=== PATIENT | female | born 1950 | race Caucasian/White ===

== ENCOUNTER → 2017-01-12 | Outpatient (REF) | payer BC ==
[2017-01-12 14:58] LABS: MEAN CORPUSCULAR HEMOGLOBIN 32.4 pg (27.0-33.0); MEAN CORPUSCULAR HGB CONC 33.2 g/dl (32.0-36.5); MEAN CORPUSCULAR VOLUME 97.6 fl (80.0-96.0); RED CELL DISTRIBUTION WIDTH 12.4 % (11.5-14.5); WHITE BLOOD COUNT 7.5 K/mm3 (4.0-10.0)
[2017-01-12 15:06] LABS: ALBUMIN 3.7 GM/DL (3.2-5.2); ALBUMIN/GLOBULIN RATIO 1.16 (1.00-1.93); ALKALINE PHOSPHATASE 76 U/L (45-117); ALT/SGPT 22 U/L (12-78); ANION GAP 5 MEQ/L (8-16); AST/SGOT 15 U/L (15-37); BILIRUBIN,TOTAL 0.2 MG/DL (0.2-1.0); BLOOD UREA NITROGEN 13 MG/DL (7-18); CALCIUM LEVEL 9.3 MG/DL (8.8-10.2); CARBON DIOXIDE LEVEL 30 MEQ/L (21-32); CHLORIDE LEVEL 104 MEQ/L (98-107); CHOLESTEROL LEVEL 207 MG/DL (<200); CREATININE FOR GFR 0.88 MG/DL (0.55-1.02); GLOMERULAR FILTRATION RATE > 60.0 (>45); GLUCOSE, FASTING 95 MG/DL (80-110); SODIUM LEVEL 139 MEQ/L (136-145); TOTAL PROTEIN 6.9 GM/DL (6.4-8.2); TRIGLYCERIDES LEVEL 87 MG/DL (<150)
[2017-01-12 15:08] LABS: POTASSIUM SERUM 5.2 MEQ/L (3.5-5.1)
== END ==
LOC: M SFHCLACO 09:04
PROVIDERS: ATTEND Physician Assistant
DX: J44.9 Chronic obstructive pulmonary disease, unspecified (principal); L40.50 Arthropathic psoriasis, unspecified; E78.2 Mixed hyperlipidemia

== ENCOUNTER → 2017-02-24 | Outpatient (REF) | payer BC | LOC: M SFHCLACO 15:05 | PROVIDERS: ATTEND Physician Assistant | DX: L82.1 Other seborrheic keratosis (principal) ==

== ENCOUNTER → 2017-08-22 | Outpatient (REF) | payer MEDICARE, BC ==
[2017-08-22 13:12] LABS: MEAN CORPUSCULAR HEMOGLOBIN 32.6 pg (27.0-33.0); MEAN CORPUSCULAR HGB CONC 33.5 g/dl (32.0-36.5); MEAN CORPUSCULAR VOLUME 97.2 fl (80.0-96.0); PLATELET COUNT, AUTOMATED 391 10^3/uL (150-450); RED CELL DISTRIBUTION WIDTH 12.9 % (11.5-14.5); WHITE BLOOD COUNT 9.8 10^3/uL (4.0-10.0)
[2017-08-22 13:23] LABS: ALBUMIN 3.7 GM/DL (3.2-5.2); ALBUMIN/GLOBULIN RATIO 1.28 (1.00-1.93); ALKALINE PHOSPHATASE 70 U/L (45-117); ALT/SGPT 18 U/L (12-78); ANION GAP 4 MEQ/L (8-16); AST/SGOT 13 U/L (7-37); BILIRUBIN,TOTAL 0.2 MG/DL (0.2-1.0); BLOOD UREA NITROGEN 18 MG/DL (7-18); CALCIUM LEVEL 9.7 MG/DL (8.8-10.2); CARBON DIOXIDE LEVEL 31 MEQ/L (21-32); CHLORIDE LEVEL 104 MEQ/L (98-107); CHOLESTEROL LEVEL 218 MG/DL (<200); CREATININE FOR GFR 0.75 MG/DL (0.55-1.02); GLOMERULAR FILTRATION RATE > 60.0 (>45); GLUCOSE, FASTING 88 MG/DL (80-110); SODIUM LEVEL 139 MEQ/L (136-145); TOTAL PROTEIN 6.6 GM/DL (6.4-8.2); TRIGLYCERIDES LEVEL 98 MG/DL (<150)
== END ==
LOC: M SFHCLACO 08:34
PROVIDERS: ATTEND Physician Assistant
DX: E78.2 Mixed hyperlipidemia (principal); J44.9 Chronic obstructive pulmonary disease, unspecified; L40.50 Arthropathic psoriasis, unspecified

== ENCOUNTER 2018-01-28 10:38 | Emergency (ER) | payer MEDICARE, BC ==
[2018-01-28] MEDS: NAPROXEN 250 MG TAB PO (11:27)
== END 2018-01-28 12:42 | disposition home or self-care (01) ==
LOC: M ED 10:38
DX: M25.461 Effusion, right knee (principal); M79.601 Pain in right arm; J44.9 Chronic obstructive pulmonary disease, unspecified; E78.00 Pure hypercholesterolemia, unspecified; M19.90 Unspecified osteoarthritis, unspecified site; F17.200 Nicotine dependence, unspecified, uncomplicated; Z79.2 Long term (current) use of antibiotics; Z79.899 Other long term (current) drug therapy; Z88.0 Allergy status to penicillin
CPT/HCPCS: 73564

== ENCOUNTER → 2018-02-07 | Outpatient (REF) | payer MEDICARE ==
[2018-02-07 15:41] LABS: APPEARANCE, BODY FLUID HAZY (CLEAR); CRYSTALS, BODY FLUID NONE SEEN (NONE SEEN); SOURCE, BODY FLUID RT KNEE; SOURCE, BODY FLUID CRYSTALS RT KNEE; SYNOVIAL FLUID COLOR PALE YELLOW (YELLOW)
[2018-02-07 15:45] LABS: BF MONONUCLEAR CELL % 9.6 % (0-0); BF POLYMORPHONUCLEAR CELL % 90.4 % (0-0); RBC BODY FLUID 2 10^3/uL (<2)
[2018-02-07 15:57] LABS: BF DIFF IF INDICATED? YES (NO); WBC BODY FLUID 13674 /uL (0-10)
[2018-02-07 15:58] LABS: SOURCE, BODY FLUID GLUCOSE RT KNEE
[2018-02-07 16:11] LABS: BODY FLUID RHEUMATOID SCREEN NEGATIVE (NEGATIVE); MUCIN CLOT TEST 4+ (4+)
== END ==
LOC: M LAB REF 13:42
DX: M25.461 Effusion, right knee (principal)
CPT/HCPCS: 82945

== ENCOUNTER → 2018-06-29 | Outpatient (REF) | payer MEDICARE ==
[2018-06-29 13:52] LABS: BASO # 0.1 10^3/uL (0.0-0.2); BASO % 0.8 % (0.0-1.0); EOS # 0.7 10^3/uL (0.0-0.50); EOS % 6.6 % (0.0-3.0); HEMATOCRIT 40.6 % (36.0-47.0); HEMOGLOBIN 13.6 g/dl (12.0-15.5); IMMATURE GRANULOCYTE % 0.2 % (0-3.0); LYMPH # 3.5 10^3/uL (1.5-4.5); LYMPH % 35.5 % (24.0-44.0); MEAN CORPUSCULAR HEMOGLOBIN 33.3 pg (27.0-33.0); MEAN CORPUSCULAR HGB CONC 33.5 g/dl (32.0-36.5); MEAN CORPUSCULAR VOLUME 99.5 fl (80.0-96.0); MONO # 0.9 10^3/uL (0.0-0.8); MONO % 8.5 % (0.0-5.0); NEUTROPHILS # 4.8 10^3/uL (1.8-7.7); NEUTROPHILS % 48.4 % (36.0-66.0); PLATELET COUNT, AUTOMATED 355 10^3/uL (150-450); RED BLOOD COUNT 4.08 10^6/uL (4.00-5.40); RED CELL DISTRIBUTION WIDTH 12.3 % (11.5-14.5)
[2018-06-29 14:31] LABS: ALBUMIN 3.8 GM/DL (3.2-5.2); ALBUMIN/GLOBULIN RATIO 1.23 (1.00-1.93); ALKALINE PHOSPHATASE 67 U/L (45-117); ALT/SGPT 20 U/L (12-78); ANION GAP 7 MEQ/L (8-16); AST/SGOT 12 U/L (7-37); BILIRUBIN,TOTAL 0.2 MG/DL (0.2-1.0); BLOOD UREA NITROGEN 20 MG/DL (7-18); C REACTIVE PROTEIN QUANTITATIV < 0.30 MG/DL (0.00-0.30); CALCIUM LEVEL 9.1 MG/DL (8.8-10.2); CARBON DIOXIDE LEVEL 28 MEQ/L (21-32); CHLORIDE LEVEL 103 MEQ/L (98-107); GLOMERULAR FILTRATION RATE > 60.0 (>45); GLUCOSE, FASTING 73 MG/DL (70-100); POTASSIUM SERUM 5.2 MEQ/L (3.5-5.1); RHEUMATOID FACTOR QUANT < 10.0 IU/ML (<15.0); SODIUM LEVEL 138 MEQ/L (136-145); TOTAL PROTEIN 6.9 GM/DL (6.4-8.2)
[2018-06-29 14:57] LABS: ERYTHROCYTE SEDIMENTATION RATE 13 mm/hr (0-30)
[2018-06-29 15:23] LABS: HEPATITIS B SURFACE ANTIBODY NEGATIVE (POSITIVE); HEPATITIS B SURFACE ANTIGEN NEGATIVE (NEGATIVE)
[2018-06-29 15:41] LABS: HEPATITIS C VIRUS ABY INDEX 0.1 INDEX (<0.8)
[2018-07-01 14:07] LABS: QUANTIFERON GOLD TB Negative (Negative); TB Test (QFT) Antigen 0.08 IU/mL (.); TB Test (QFT) Antigen Minus Ni <0.01 IU/mL (.); TB Test (QFT) Mitogen 7.75 IU/mL (.); TB Test (QFT) Nil 0.11 IU/mL (.)
== END ==
LOC: M SFHCLERA 10:47
DX: M25.561 Pain in right knee (principal); M54.5 Low back pain; G89.29 Other chronic pain; F17.210 Nicotine dependence, cigarettes, uncomplicated; Z79.899 Other long term (current) drug therapy
CPT/HCPCS: 80053

== ENCOUNTER → 2018-06-29 | Outpatient (CLI) | payer MEDICARE | LOC: M LRY 11:00 | DX: M53.3 Sacrococcygeal disorders, not elsewhere classified (principal); M51.36 Other intervertebral disc degeneration, lumbar region; M51.37 Other intervertebral disc degeneration, lumbosacral region; M25.561 Pain in right knee; M54.5 Low back pain; G89.29 Other chronic pain; F17.210 Nicotine dependence, cigarettes, uncomplicated; Z79.899 Other long term (current) drug therapy | CPT/HCPCS: 72100; 80053 ==

== ENCOUNTER → 2018-11-27 | Outpatient (CLI) | payer MEDICARE ==
[~2018-11-27] MED LIST: ALPR1TAB6 PO; ALPRTAB5 PO; AMOX500C PO; EFFE150C2 PO; ISOVUE-370 76% 100ML VIAL (Q9967) As Ordered ONE; MELO15TA28 PO; NAPR-50 PO; OXYCODONE-ACE PO; SIMV20TA2 PO; TIOT18INH INH
--- NOTE | 2018-11-27 15:03 | REP ---
CT of the chest with IV contrast: There are no comparison studies. There are no lung masses or nodules. There are linear densities in the lower lobes bilaterally, likely parenchymal scarring. Neoplasm is considered less likely. There are no acute infiltrates or pleural effusions. Suspect there are numerous small bullae throughout the lung schilling bilaterally. Probable mild bronchiectasis in the lower lobes. There is no mediastinal or hilar lymph node enlargement. There is no axillary lymph node enlargement. The thoracic aorta is unremarkable except for occasional calcified atheroma. Cardiac size is normal. The visualized upper abdominal contents are unremarkable. Impression: There are no comparisons. There are linear densities in the lower lobes, likely parenchymal scarring, neoplasm is considered less likely. No nodules or masses. No infiltrates or effusions. Small bulla throughout the lung schilling bilaterally. Probable bilateral lower lobe bronchiectasis. Electronically Signed by Byron Vora MD 11/27/2018 02:54 P
== END ==
LOC: M RAD 12:58
PROVIDERS: ATTEND Physician Assistant
DX: R04.2 Hemoptysis (principal); R51 Headache
CPT/HCPCS: 71260; Q9967

== ENCOUNTER → 2020-05-20 | Outpatient (CLI) | payer MEDICARE ==
[~2020-05-20] MED LIST changes: -ISOVUE-370 76% 100ML VIAL (Q9967) As Ordered ONE; -NAPR-50 PO; +NAPR-837 PO; -SIMV20TA2 PO; +SIMV20TA22 PO
--- NOTE | 2020-06-29 10:32 | REP ---
CHEST CT WITHOUT CONTRAST: LOW-DOSE SCREENING EXAM HISTORY: Nicotine dependence. COMPARISON: Chest CT study 11/27/2018. CT FINDINGS: Preliminary digital learning support resource room teacher radiograph demonstrates hyperinflation. There emphysematous changes in the upper lobes. There is linear fibrosis in the lingula at the left base and in the right middle lobe. Minimal linear fibrosis is seen in the left lower lobe. There are benign subpleural nodules along the minor fissure on the right unchanged from the comparison study of 11/27/2018. No significant pulmonary nodule is appreciated. Vascular calcification is observed. IMPRESSION: Lung-RADS category [address] study indicated in one year. MTDD
== END ==
LOC: M RAD 08:30
PROVIDERS: ATTEND Physician Assistant
DX: Z12.2 Encounter for screening for malignant neoplasm of respiratory organs (principal); F17.218 Nicotine dependence, cigarettes, with other nicotine-induced disorders

== ENCOUNTER → 2020-07-06 | Outpatient (REF) | payer MEDICARE | LOC: M LAB REF 17:16 | PROVIDERS: ATTEND Physician Assistant | DX: C44.319 Basal cell carcinoma of skin of other parts of face (principal); L82.0 Inflamed seborrheic keratosis ==

== ENCOUNTER → 2020-09-25 | Outpatient (REF) | payer MEDICARE | LOC: M LAB REF 09:29 | PROVIDERS: ATTEND Dermatology | DX: C44.629 Squamous cell carcinoma of skin of left upper limb, including shoulder (principal); L57.8 Other skin changes due to chronic exposure to nonionizing radiation ==

== ENCOUNTER → 2021-03-23 | Outpatient (REF) | payer MEDICARE, OTHER | LOC: M LAB REF 17:24 | PROVIDERS: ATTEND Dermatology | DX: L90.5 Scar conditions and fibrosis of skin (principal) ==

== ENCOUNTER 2021-07-17 09:01 | Inpatient (IN) | payer OTHER ==
[~2021-07-17] VITALS: Ht 157.5 cm; Wt 51.9 kg
[2021-07-17] MEDS ORDERED: CLINDAMYCIN 900 MG in IV 1 EA IV ONE (10:15)
[2021-07-17] MEDS ORDERED: KETOROLAC 30 MG/ML 1ML VIAL IV ONE (10:15)
[2021-07-17 10:23] LABS: BASO # 0.1 10^3/uL (0.0-0.2); BASO % 0.6 % (0.0-1.0); EOS # 0.7 10^3/uL (0.0-0.5); EOS % 4.8 % (0.0-3.0); HEMATOCRIT 36.8 % (36.0-47.0); HEMOGLOBIN 12.2 g/dl (12.0-15.5); LYMPH # 2.3 10^3/uL (1.5-5.0); LYMPH % 15.6 % (24.0-44.0); MEAN CORPUSCULAR HEMOGLOBIN 32.5 pg (27.0-33.0); MEAN CORPUSCULAR HGB CONC 33.2 g/dl (32.0-36.5); MEAN CORPUSCULAR VOLUME 98.1 fl (80.0-96.0); MONO % 6.7 % (2.0-8.0); NEUTROPHILS # 10.4 10^3/uL (1.5-8.5); PLATELET COUNT, AUTOMATED 470 10^3/uL (150-450); RED BLOOD COUNT 3.75 10^6/uL (4.00-5.40); WHITE BLOOD COUNT 14.5 10^3/uL (4.0-10.0)
[2021-07-17] MEDS ORDERED: ISOVUE-370 76% 100ML VIAL As Ordered ONE (10:24)
[2021-07-17 10:46] LABS: ERYTHROCYTE SEDIMENTATION RATE 60 mm/hr (0-30)
[2021-07-17 10:56] LABS: ALT/SGPT 15 U/L (12-78); BILIRUBIN,DIRECT < 0.1 MG/DL (0.0-0.2); BILIRUBIN,TOTAL 0.3 MG/DL (0.2-1.0); C REACTIVE PROTEIN QUANTITATIV 8.39 MG/DL (0.00-0.30); TOTAL PROTEIN 7.6 GM/DL (6.4-8.2)
[2021-07-17] MEDS ORDERED: NS 1,000 ML IV ONE (11:15)
--- NOTE | 2021-07-17 12:16 | REPVR ---
PROCEDURE INFORMATION: Exam: CT Maxillofacial With Contrast Exam date and time: 07/17/2021 10:40 AM Age: 70 years old Clinical indication: Mass, lump, or swelling; Other: R maxillary into mandibular; Additional info: Large swollen tender area R maxillary into mandibular TECHNIQUE: Imaging protocol: Computed tomography images of the face with intravenous contrast. Radiation optimization: All CT scans at this facility use at least one of these dose optimization techniques: automated exposure control; mA and/or kV adjustment per patient size (includes targeted exams where dose is matched to clinical indication); or iterative reconstruction. Contrast material: ISOVUE 370; Contrast volume: 75 ml; Contrast route: INTRAVENOUS (IV); COMPARISON: No relevant prior studies available. FINDINGS: Orbital cavity: Orbits are normal. Globes are unremarkable. Bones/joints: No destructive or erosive osseous changes. Paranasal sinuses: No air-fluid levels. Soft tissues: Unremarkable. Submandibular/Parotid glands: Soft tissue inflammation with cellulitis throughout the right face including skin thickening, subcutaneous fat inflammation, inflammation extending into the cementer machine joiner space and along the anterior aspect of the parotid gland and duct. No drainable fluid collection. Dental: There is a 1.4 cm intraosseous cystic area associated with the impacted right posterior mandibular molar, likely an odontogenic cyst. IMPRESSION: Right facial skin thickening with cellulitis and myositis. No drainable fluid collection. Electronically signed by: Felipe Jalloh On 07/17/2021 12:16:16 PM
[2021-07-17] MEDS ORDERED: VANCOMYCIN HCL 1,000 MG in IV FLUID PLACE HOLDER 1 EA IV ONE (12:30)
[2021-07-17] MEDS ORDERED: VANCOMYCIN HCL 1,000 MG, VIAL MATE ADAPTER 1 EACH in NS 250 ML IV ONE (13:00)
[2021-07-17] MEDS ORDERED: SODIUM CHLORIDE 0.9% 1000ML IV STA (13:02)
--- NOTE | 2021-07-17 13:10 | HPEPDOC ---
General Date of Admission 07/17/21 Date of Service: Jul 17, 2021 Chief Complaint The patient is a 70-year-old female admitted with a reason for visit of Eye Problem. Source: Patient History of Present Illness Patient is 70 years old female with past medical history of hypertension, hyperlipidemia, COPD, active smoker, psoriasis presented to hospital with facial redness and swelling. Patient stated that around 5 days ago she tried to squeeze a pimple on the right cheek and after that she developed redness and swelling which became progressively worse for the next few days. For last 2 days she has been taking Bactrim without positive dynamic. Patient stated for past 2 days she has been having fever up to 101 Fahrenheit. In ER patient was found to have leukocytosis of 14.5, lactic acidosis within normal limit. Patient was found to have tachycardia with heart rate of 105. Maxillofacial CT showed Right facial skin thickening with cellulitis and myositis. No drainable fluid collection. Dr. Nur was contacted by ER he recommended to start IV vancomycin. Home Medications Scheduled Alprazolam (Alprazolam ER) 1 Mg Tab, PO DAILY, (Reported) Amoxicillin (Amoxicillin) 500 Mg Cap, PO BID, (Reported) Meloxicam (Meloxicam) 15 Mg Tab, PO DAILY, (Reported) Naproxen (Naprosyn) 500 Mg Tab, 500 MG PO BID take with food Simvastatin (Simvastatin) 20 Mg Tab, PO DAILY, (Reported) Tiotropium Gilbert Monohydrate (Spiriva) 5 Inhalation/Inhaler Powd, 1 INHALATION INH DAILY, (Reported) [Oxycodone-Oracio] , PO DAILY, (Reported) Miscellaneous Medications Venlafaxine HCl (Effexor Xr) 150 Mg Cap, 150 MG PO, (Reported) Allergies Coded Allergies: Penicillins (Verified Allergy, Mild, ITCHING/NAUSEA, 07/17/21) Past Medical History Medical History HYPERLIPIDEMIA 2B COPD-11/2011 FEV1 1.9L (91% PREDICTED) PSORIATIC ARTHRITIS PSORIASIS ANXIETY DISORDER OSTEOPENIA B CAROTID DISEASE, R 50-69% STENOSIS, L 50% BY 08/2013 US Surgical History LUMP REMOVED FROM LEFT BREAST 2000 TUBAL LIGATION 1977 LAPAROSCOPIC SURGERY ON LEFT KNEE 2013 SKIN CANCER REMOVED FROM HEAD September Family History FATHER: 45 YRS, LIVER FAILURE MOTHER: 84 YRS, HTN, HYPERLIPIDEMIA, LYME DZ, OF BREAST CANCER NO CAD NOR CVA IN 1DR \N\NMOTHER- RHEUMATOID AND BREAST CANCERMOTHER AND BROTHER SKIN CANCER. DENIES FH OF MELANOMA. Social History * Smoker: current smoker Alcohol: occationally Drugs: marijuana A-FIB/CHADSVASC A-FIB History Current/History of A-Fib/PAF?: No Current PO Anticoag Therapy: No Review of Systems Constitutional: Reports: Fever; Denies: Chills Eyes: Denies: Pain ENT: Reports: Other Symptoms (Right facial swelling); Denies: Head Aches Skin: Denies: Jaundice, Itching Pulmonary: Denies: Dyspnea, Cough Cardiovascular: Denies: Chest Pain Gastrointestinal: Denies: Nausea Genitourinary: Denies: Dysuria Hematologic: Denies: Bruising Endocrine: Denies: Polydipsia, Polyphagia Musculoskeletal: Denies: Neck Pain Psych: Denies: Mood Normal Physical Examination General Exam: Positive: Alert, Cooperative ENT Exam: Positive: Other ENT (Right cheek swelling with redness) Neck Exam: Positive: Supple, JVD Chest Exam: Positive: Clear to auscultation Heart Exam: Positive: Tachycardic Telemetry: Positive: Sinus Abdomen Exam: Positive: Normal bowel sounds Extremity Exam: Negative: Clubbing, Cyanosis Neuro Exam: Positive: Strength at 5/5 X4 ext, Cranial Nerves 3-12 NL Psych Exam: Positive: Mental status NL Vital Signs Vital Signs Date Time Temp Pulse Resp B/P (MAP) Pulse Ox O2 Delivery O2 Flow Rate FiO2 07/17/21 09:02 98.8 102 18 130/60 (83) 97 Room Air Laboratory Data Labs 24H Laboratory Tests 2 07/17/21 10:10: Immature Granulocyte % (Auto) 0.3, Neutrophils (%) (Auto) 72.0H, Lymphocytes (%) (Auto) 15.6L, Monocytes (%) (Auto) 6.7, Eosinophils (%) (Auto) 4.8H, Basophils (%) (Auto) 0.6, Neutrophils # (Auto) 10.4H, Lymphocytes # (Auto) 2.3, Monocytes # (Auto) 1.0H, Eosinophils # (Auto) 0.7H, Basophils # (Auto) 0.1, Nucleated Red Blood Cells % (auto) 0.0, Erythrocyte Sedimentation Rate 60H, Lactic Acid Level 0.9, Total Bilirubin 0.3, Direct Bilirubin < 0.1, Aspartate Amino Transf (AST/SGOT) 18, Alanine Aminotransferase (ALT/SGPT) 15, Alkaline Phosphatase 87, C-Reactive Protein, Quantitative 8.39H, Total Protein 7.6, Albumin 3.0L, Albumin/Globulin Ratio 0.7L 07/17/21 10:11: POC Glucose (Misc Panel) 96, POC Sodium (Misc Panel) 135L, POC Potassium (Misc Panel) 4.8, POC Chloride (Misc Panel) 99, POC Total CO2 (Misc Panel) 29.0H, POC Blood Urea Nitrogen (Misc Panel 14, POC Ionized Calcium (Misc Panel) 4.9, POC Creatinine (Misc Panel) 1.0, POC Hematocrit (Misc Panel) 37.0L CBC/BMP Laboratory Tests 07/17/21 10:10 Microbiology Microbiology 07/17/21 Blood Culture, Received Pending 07/17/21 Blood Culture, Received Pending Assessment/Plan Patient is 70 years old female with past medical history of hypertension, hyperl ipidemia, COPD, active smoker, psoriasis presented to hospital with facial redness and swelling. Patient stated that around 5 days ago she tried to squeeze a pimple on the right cheek and after that she developed redness and swelling which became progressively worse for the next few days. For last 2 days she has been taking Bactrim without positive dynamic. Patient stated for past 2 days she has been having fever up to 101 Fahrenheit. In ER patient was found to have leukocytosis of 14.5, lactic acidosis within normal limit. Patient was found to have tachycardia with heart rate of 105. Maxillofacial CT showed Right facial skin thickening with cellulitis and myositis. No drainable fluid collection. Dr. Nur was contacted by ER he recommended to start IV vancomycin. Problems (1) Facial cellulitis Status: Acute Problem Text: Started vancomycin IV Blood culture pending Pain management (2) Hypertension Status: Chronic Problem Text: Continue home meds (3) COPD (chronic obstructive pulmonary disease) Status: Chronic Problem Text: Not in acute exacerbation continue home meds (4) Nicotine abuse Status: Chronic Problem Text: Patient received counseling (5) HLD (hyperlipidemia) Status: Chronic Problem Text: Continue statin (6) SIRS (systemic inflammatory response syndrome) Status: Acute Problem Text: Patient developed leukocytosis, tachycardia Started IV fluid with vancomycin IV Plan / VTE VTE Prophylaxis Ordered?: Yes GOMEZ JARAMILLO DO Jul 17, 2021 13:10
[2021-07-17] MEDS ORDERED: VENL100T PO (13:42)
[2021-07-17] MEDS ORDERED: OXYC1TAB23 PO (13:42)
[2021-07-17] MEDS ORDERED: CYCL-707 PO (13:42)
[2021-07-17] MEDS ORDERED: ALPRTAB5 PO (13:42)
[2021-07-17] MEDS ORDERED: ALPR0.5T3 PO (13:42)
[2021-07-17] MEDS ORDERED: BACTDSTA PO (13:42)
[2021-07-17] MEDS ORDERED: VENL50TA2 PO (13:42)
[2021-07-17] MEDS ORDERED: LOSA25TA14 PO (13:42)
[2021-07-17] MEDS ORDERED: SPIR12.9 INH (13:43)
[2021-07-17] MEDS ORDERED: HOME MED LIST COMPLETE! XX SCH (13:45)
[2021-07-17 16:34] LABS: RSV AMPLIFICATION NEGATIVE (NEGATIVE)
[2021-07-17 17:00] VITALS: BP 157/98
[2021-07-17] MEDS: HEPARIN SOD (PORCINE) 5000UNITS/ML 1ML VIAL/SYRINGE SC SCH (21:11)
[2021-07-17] MEDS: ACETAMINOPHEN TAB 650MG DOSE (2X325MG) PO PRN (21:12)
[2021-07-17 21:23] VITALS: BP 109/64
[2021-07-18 06:00] VITALS: BP 135/79
[2021-07-18] MEDS: ACETAMINOPHEN TAB 650MG DOSE (2X325MG) PO PRN (07:44)
[2021-07-18] MEDS: HEPARIN SOD (PORCINE) 5000UNITS/ML 1ML VIAL/SYRINGE SC SCH ×2 (07:44→20:32)
[2021-07-18] MEDS ORDERED: PERCOCET 5MG/325MG TAB PO PRN (08:35)
[2021-07-18] MEDS ORDERED: CYCLOBENZAPRINE 10MG TABLET PO PRN (08:35)
[2021-07-18] MEDS ORDERED: ALPRAZolam 0.5 MG TAB PO PRN (08:35)
[2021-07-18 09:25] LABS: HEMATOCRIT 33.5 % (36.0-47.0); HEMOGLOBIN 11.1 g/dl (12.0-15.5); MEAN CORPUSCULAR HEMOGLOBIN 32.3 pg (27.0-33.0); MEAN CORPUSCULAR HGB CONC 33.1 g/dl (32.0-36.5); MEAN CORPUSCULAR VOLUME 97.4 fl (80.0-96.0); PLATELET COUNT, AUTOMATED 483 10^3/uL (150-450); RED BLOOD COUNT 3.44 10^6/uL (4.00-5.40); WHITE BLOOD COUNT 11.3 10^3/uL (4.0-10.0)
[2021-07-18] MEDS: SIMVASTATIN 20 MG TAB PO SCH (09:48)
[2021-07-18] MEDS: LOSARTAN 25 MG TAB PO SCH (09:48)
[2021-07-18 09:49] LABS: ALBUMIN 2.6 GM/DL (3.2-5.2); ALT/SGPT 14 U/L (12-78); BILIRUBIN,TOTAL 0.2 MG/DL (0.2-1.0); BLOOD UREA NITROGEN 17 MG/DL (7-18); CALCIUM LEVEL 9.5 MG/DL (8.8-10.2); CARBON DIOXIDE LEVEL 27 MEQ/L (21-32); CHLORIDE LEVEL 106 MEQ/L (98-107); CREATININE FOR GFR 0.88 MG/DL (0.55-1.30); GLOMERULAR FILTRATION RATE > 60.0 (>45); GLUCOSE, FASTING 74 MG/DL (70-100); MAGNESIUM LEVEL 2.1 MG/DL (1.8-2.4); POTASSIUM SERUM 5.3 MEQ/L (3.5-5.1); SODIUM LEVEL 138 MEQ/L (136-145); TOTAL PROTEIN 6.2 GM/DL (6.4-8.2)
[2021-07-18] MEDS ORDERED: NICOTINE 21MG/24HR 1 EA TRANSDERMAL TD PRN (10:00)
--- NOTE | 2021-07-18 12:07 | IPNPDOC ---
Text Note Date of Service The patient was seen on 07/18/21. NOTE Subjective: No any acute events overnight. No fever or chills. Patient stated that she has less right facial swelling. Objective: GENERAL APPEARANCE: NAD HEENT: no scleral icterus, no JVD, EOMI CARDIOVASCULAR: S1S2 LUNGS: Diminished lung sounds bilaterally ABDOMEN: soft & not tender w palpation MUSCULOSKELETAL: no cyanosis, no swelling INTEGUMENT: no generalized pallor, right cheek swelling with redness NEUROLOGICAL: cranial nerve function from 2-12 intact, follows commands, speech not dysarthric Assessment/Plan Patient is 70 years old female with past medical history of hypertension, hyperlipidemia, COPD, active smoker, psoriasis presented to hospital with facial redness and swelling. Patient stated that around 5 days ago she tried to squeeze a pimple on the right cheek and after that she developed redness and swelling which became progressively worse for the next few days. For last 2 days she has been taking Bactrim without positive dynamic. Patient stated for past 2 days she has been having fever up to 101 Fahrenheit. In ER patient was found to have leukocytosis of 14.5, lactic acidosis within normal limit. Patient was found to have tachycardia with heart rate of 105. Maxillofacial CT showed Right facial skin thickening with cellulitis and myositis. No drainable fluid collection. Dr. Nur was contacted by ER he recommended to start IV vancomycin. Problems (1) Facial cellulitis Improved Continue vancomycin IV day 1 Blood culture negative Pain management (2) Hypertension Continue home meds (3) COPD (chronic obstructive pulmonary disease) Not in acute exacerbation continue home meds (4) Nicotine abuse Patient received counseling Nicotine patch (5) HLD (hyperlipidemia) Continue statin (6) SIRS (systemic inflammatory response syndrome) Patient developed leukocytosis, tachycardia Resolved Hyperkalemia Potassium slightly elevated Kayexalate p.o. Plan / VTE VTE Prophylaxis Ordered?: Yes VS,Fishbone, I+O VS, Fishbone, I+O Laboratory Tests 07/18/21 08:33 Vital Signs Date Time Temp Pulse Resp B/P (MAP) Pulse Ox O2 Delivery O2 Flow Rate FiO2 07/18/21 09:48 119/85 07/18/21 06:00 99.3 90 18 96 Room Air I&O- Last 24 Hours up to 6 AM 07/18/21 06:00 Intake Total 3480 ml Balance 3480 ml GOMEZ JARAMILLO DO Jul 18, 2021 12:07
[2021-07-18] MEDS: VENLAFAXINE 25 MG TAB PO SCH ×2 (12:41)
[2021-07-18] MEDS ORDERED: SOD POLYSTYRENE SULFONATE SUSP 15 GM/60 ML UD PO ONE (13:00)
[2021-07-18 14:00] VITALS: BP 150/86
[2021-07-18] MEDS ORDERED: VANCOMYCIN HCL 1,000 MG, VIAL MATE ADAPTER 1 EACH in NS 250 ML IV SCH (14:00)
[2021-07-18] MEDS: PERCOCET 5MG/325MG TAB PO PRN ×2 (16:43→23:14)
[2021-07-18 21:52] VITALS: BP 153/82
[2021-07-19] MEDS: PERCOCET 5MG/325MG TAB PO PRN (05:55)
[2021-07-19 06:00] VITALS: BP 155/86
[2021-07-19 08:59] LABS: BASO # 0.1 10^3/uL (0.0-0.2); BASO % 1.1 % (0.0-1.0); EOS # 0.9 10^3/uL (0.0-0.5); EOS % 8.7 % (0.0-3.0); HEMATOCRIT 36.5 % (36.0-47.0); HEMOGLOBIN 12.1 g/dl (12.0-15.5); LYMPH # 1.8 10^3/uL (1.5-5.0); LYMPH % 18.7 % (24.0-44.0); MEAN CORPUSCULAR HGB CONC 33.2 g/dl (32.0-36.5); MEAN CORPUSCULAR VOLUME 96.6 fl (80.0-96.0); MONO # 0.6 10^3/uL (0.0-0.8); MONO % 6.4 % (2.0-8.0); NEUTROPHILS # 6.4 10^3/uL (1.5-8.5); NEUTROPHILS % 64.6 % (36.0-66.0); PLATELET COUNT, AUTOMATED 520 10^3/uL (150-450); RED BLOOD COUNT 3.78 10^6/uL (4.00-5.40); WHITE BLOOD COUNT 9.9 10^3/uL (4.0-10.0)
[2021-07-19] MEDS: VENLAFAXINE 25 MG TAB PO SCH ×2 (09:00)
[2021-07-19] MEDS: SIMVASTATIN 20 MG TAB PO SCH (09:01)
[2021-07-19] MEDS: HEPARIN SOD (PORCINE) 5000UNITS/ML 1ML VIAL/SYRINGE SC SCH (09:01)
[2021-07-19] MEDS: LOSARTAN 25 MG TAB PO SCH (09:17)
[2021-07-19 09:23] LABS: BLOOD UREA NITROGEN 12 MG/DL (7-18); CALCIUM LEVEL 9.4 MG/DL (8.8-10.2); CARBON DIOXIDE LEVEL 28 MEQ/L (21-32); CHLORIDE LEVEL 104 MEQ/L (98-107); CREATININE FOR GFR 0.86 MG/DL (0.55-1.30); GLOMERULAR FILTRATION RATE > 60.0 (>45); GLUCOSE, FASTING 98 MG/DL (70-100); POTASSIUM SERUM 4.3 MEQ/L (3.5-5.1); SODIUM LEVEL 138 MEQ/L (136-145)
[2021-07-19] MEDS ORDERED: DOXY-350 PO (10:34)
[2021-07-19] MEDS ORDERED: LOSA50TA88 PO (10:37)
[2021-07-19 10:50] VITALS: BP 173/101
[2021-07-19] MEDS ORDERED: LOSARTAN 25 MG TAB PO ONE (11:00)
--- NOTE | 2021-07-19 12:39 | DS.PDOC ---
Discharge Summary General Date of Admission Jul 17, 2021 at 13:02 Date of Discharge 07/18/21 Discharge Summary PROCEDURES PERFORMED DURING STAY: [None]. ADMITTING DIAGNOSES: Facial cellulitis Hypertension COPD (chronic obstructive pulmonary disease) Nicotine abuse HLD (hyperlipidemia) SIRS (systemic inflammatory response syndrome) Hyperkalemia DISCHARGE DIAGNOSES: Facial cellulitis Hypertension COPD (chronic obstructive pulmonary disease) Nicotine abuse HLD (hyperlipidemia) SIRS (systemic inflammatory response syndrome) Hyperkalemia COMPLICATIONS/CHIEF COMPLAINT: Facial Cellulitits. HISTORY OF PRESENT ILLNESS: Patient is 70 years old female with past medical history of hypertension, hyperlipidemia, COPD, active smoker, psoriasis prese nted to hospital with facial redness and swelling. Patient stated that around 5 days ago she tried to squeeze a pimple on the right cheek and after that she developed redness and swelling which became progressively worse for the next few days. For last 2 days she has been taking Bactrim without positive dynamic. Patient stated for past 2 days she has been having fever up to 101 Fahrenheit. In ER patient was found to have leukocytosis of 14.5, lactic acidosis within normal limit. Patient was found to have tachycardia with heart rate of 105. Maxillofacial CT showed Right facial skin thickening with cellulitis and myositis. No drainable fluid collection. Dr. Nur was contacted by ER he recommended to start IV vancomycin. HOSPITAL COURSE: During the hospital stay the following issue addressed Patient was found to have facial swelling started after, patient received treat ment with vancomycin IV with positive effect. Surgical team evaluated, they recommended to continue treatment with antibiotic therapy and her warm compress. Patient developed elevated blood pressure today in the morning, I increase the dose of losartan to 50 mg daily DISCHARGE MEDICATIONS: Please see below. ALLERGIES: Please see below. PHYSICAL EXAMINATION ON DISCHARGE: VITAL SIGNS: Please see below. GENERAL APPEARANCE: NAD HEENT: no scleral icterus, no JVD, EOMI CARDIOVASCULAR: S1S2 LUNGS: Diminished lung sounds bilaterally ABDOMEN: soft & not tender w palpation MUSCULOSKELETAL: no cyanosis, no swelling INTEGUMENT: no generalized pallor, mild right cheek swelling with redness NEUROLOGICAL: cranial nerve function from 2-12 intact, follows commands, speech not dysarthric LABORATORY DATA: Please see below. IMAGING: See above PROGNOSIS: Fair ACTIVITY: [As tolerated]. DIET:cardiac DISCHARGE PLAN: Home DISCHARGE INSTRUCTIONS: Continue taking antibiotics ITEMS TO FOLLOWUP ON ON OUTPATIENT: Follow-up with PCP DISCHARGE CONDITION: [Stable]. TIME SPENT ON DISCHARGE: 20 minutes. Vital Signs/I&Os Vital Signs Date Time Temp Pulse Resp B/P (MAP) Pulse Ox O2 Delivery O2 Flow Rate FiO2 07/19/21 10:50 100 173/101 07/19/21 06:25 16 07/19/21 06:00 98.5 97 Room Air I&O- Last 24 Hours up to 6 AM 07/19/21 06:00 Intake Total 720 ml Balance 720 ml Laboratory Data Labs 24H Laboratory Tests 2 07/19/21 08:42: Immature Granulocyte % (Auto) 0.5, Neutrophils (%) (Auto) 64.6, Lymphocytes (%) (Auto) 18.7L, Monocytes (%) (Auto) 6.4, Eosinophils (%) (Auto) 8.7H, Basophils (%) (Auto) 1.1H, Neutrophils # (Auto) 6.4, Lymphocytes # (Auto) 1.8, Monocytes # (Auto) 0.6, Eosinophils # (Auto) 0.9H, Basophils # (Auto) 0.1, Nucleated Red Blood Cells % (auto) 0.0, Anion Gap 6L, Glomerular Filtration Rate > 60.0, Calcium Level 9.4 CBC/BMP Laboratory Tests 07/19/21 08:42 Microbiology Microbiology 07/17/21 Blood Culture - Preliminary, Resulted No Growth after 48 hours. All Specime... 07/17/21 Blood Culture - Preliminary, Resulted No Growth after 48 hours. All Specime... Discharge Medications Scheduled Alprazolam (Alprazolam Xr) 1 Mg Tab.er.24h, 1 MG PO DAILY, (Reported) Doxycycline Monohydrate (Doxycycline) 100 Mg Capsule, 1 CAP PO BID Losartan Potassium (Losartan Potassium) 50 Mg Tablet, 1 TAB PO DAILY Simvastatin (Simvastatin) 20 Mg Tab, 20 MG PO DAILY, (Reported) Tiotropium [place] (Spiriva Respimat) 4 Gm Mist.inhal, 1 PUFF INH DAILY, (Reported) Venlafaxine HCl (Venlafaxine HCl) 50 Mg Tablet, 50 MG PO DAILY, (Reported) WITH 100MG TAB, TOTAL OF 150MG Venlafaxine HCl (Venlafaxine HCl) 100 Mg Tablet, 100 MG PO DAILY, (Reported) WITH 50MG TAB, TOTAL OF 150MG Scheduled PRN Alprazolam (Alprazolam) 0.5 Mg Tablet, 0.5 MG PO DAILY PRN for SEVERE ANXI ETY/AGITATION, (Reported) Cyclobenzaprine HCl (Cyclobenzaprine HCl) 10 Mg Tablet, 10 MG PO TID PRN for MUSCLE SPASMS, (Reported) Oxycodone HCl/Acetaminophen (Oxycodone-Acetaminophen 5-325) 1 Each Tablet, 2 TAB PO TID PRN for PAIN LEVEL 4-7, (Reported) Allergies Coded Allergies: Penicillins (Verified Allergy, Mild, ITCHING/NAUSEA, 07/17/21) GOMEZ JARAMILLO DO Jul 19, 2021 12:39
[2021-07-19 12:56] VITALS: BP 148/90
== END 2021-07-19 13:35 | disposition home or self-care (01) | DRG 383 ==
LOC: M ED 09:01 → M ED INP 13:02 → ENRESERV 15:52 → M MS5PR 17:03
PROVIDERS: ADMIT Internal Medicine; ATTEND Internal Medicine
DX: L03.211 Cellulitis of face (principal); J44.9 Chronic obstructive pulmonary disease, unspecified; E87.5 Hyperkalemia; I10 Essential (primary) hypertension; F17.200 Nicotine dependence, unspecified, uncomplicated; E78.5 Hyperlipidemia, unspecified; L40.8 Other psoriasis; M60.88 Other myositis, other site; Z79.899 Other long term (current) drug therapy; Z88.0 Allergy status to penicillin; F41.9 Anxiety disorder, unspecified

== ENCOUNTER → 2021-07-26 | Outpatient (REF) | payer OTHER, MEDICARE ==
[~2021-07-26] MED LIST changes: +ALPR0.5T3 PO; +BACTDSTA PO; +CYCL-707 PO; +DOXY-350 PO; +LOSA25TA14 PO; +LOSA50TA88 PO; +OXYC1TAB23 PO; +SPIR12.9 INH; +VENL100T PO; +VENL50TA2 PO
== END ==
LOC: M SFHCADAM 10:42
PROVIDERS: ATTEND Physician Assistant
DX: Z20.822 Contact with and (suspected) exposure to COVID-19 (principal)
CPT/HCPCS: 87426; 99495; U0003

== ENCOUNTER → 2021-08-03 | Outpatient (CLI) | payer OTHER ==
--- NOTE | 2021-08-03 12:55 | REP ---
INDICATION: NICTOINE DEPNED. COMPARISON: Multiple the latest 05/20/2020 also low-dose screening CT of the lungs TECHNIQUE: Axial noncontrast images from the thoracic inlet to the upper abdomen using low-dose lung screening technique (LDCT). As per the protocol only lung window images were sent to the read station for interpretation FINDINGS: There is biapical pleuroparenchymal scarring status quo. There is lung field hyperexpansion and emphysematous change status quo. No new abnormal nodules, masses, or opacities have developed. Grossly, the mediastinum and pulmonary talib are unchanged. Grossly, the imaged upper abdomen and imaged osseous structures are unchanged. IMPRESSION: Stable lung rads category [address] low-dose screening CT examination of the lungs. Follow-up as per the revised Fleischner society criteria. <Electronically signed by John Ramírez > 08/03/21 [id number]
== END ==
LOC: M RAD 09:22
PROVIDERS: ATTEND Physician Assistant
DX: Z12.2 Encounter for screening for malignant neoplasm of respiratory organs (principal); F17.218 Nicotine dependence, cigarettes, with other nicotine-induced disorders

== ENCOUNTER → 2021-08-10 | Outpatient (REF) | payer MEDICARE, OTHER | LOC: M LAB REF 13:54 | PROVIDERS: ATTEND Physician Assistant | DX: C44.729 Squamous cell carcinoma of skin of left lower limb, including hip (principal); L57.0 Actinic keratosis ==

== ENCOUNTER → 2021-10-11 | Outpatient (REF) | payer OTHER ==
[2021-10-11 13:41] LABS: ALBUMIN 3.4 GM/DL (3.2-5.2); ALT/SGPT 15 U/L (12-78); BILIRUBIN,TOTAL 0.3 MG/DL (0.2-1.0); BLOOD UREA NITROGEN 15 MG/DL (7-18); CALCIUM LEVEL 9.7 MG/DL (8.8-10.2); CARBON DIOXIDE LEVEL 29 MEQ/L (21-32); CHLORIDE LEVEL 103 MEQ/L (98-107); CHOLESTEROL LEVEL 190 MG/DL (<200); CREATININE FOR GFR 0.82 MG/DL (0.55-1.30); GLOMERULAR FILTRATION RATE > 60.0 (>45); GLUCOSE, FASTING 93 MG/DL (70-100); HDL CHOLESTEROL 50 MG/DL (>40); LDL CHOLESTEROL 121 MG/DL (<100); NON-HDL-C 140 MG/DL; POTASSIUM SERUM 4.8 MEQ/L (3.5-5.1); SODIUM LEVEL 137 MEQ/L (136-145); TOTAL PROTEIN 7.1 GM/DL (6.4-8.2); TRIGLYCERIDES LEVEL 97 MG/DL (<150)
== END ==
LOC: M SFHCADAM 10:37
PROVIDERS: ATTEND Physician Assistant
DX: R05.9 Cough, unspecified (principal); R63.4 Abnormal weight loss; E78.2 Mixed hyperlipidemia

== ENCOUNTER → 2022-03-24 | Outpatient (CLI) | payer OTHER ==
[~2022-03-24] MED LIST changes: +LOSA25TA13 PO; -LOSA25TA14 PO; +LOSA50TA28 PO; -LOSA50TA88 PO
== END ==
LOC: M ADAMS 09:39
PROVIDERS: ATTEND Physician Assistant
DX: M51.37 Other intervertebral disc degeneration, lumbosacral region (principal); M41.9 Scoliosis, unspecified; R91.8 Other nonspecific abnormal finding of lung field

== ENCOUNTER → 2022-04-05 | Outpatient (REF) | payer OTHER | LOC: M SFHCDERM 14:46 | PROVIDERS: ATTEND Dermatology | DX: C44.722 Squamous cell carcinoma of skin of right lower limb, including hip (principal); L57.0 Actinic keratosis ==

== ENCOUNTER → 2022-04-19 | Outpatient (REF) | payer OTHER | LOC: M SFHCDERM 16:48 | PROVIDERS: ATTEND Dermatology | DX: T81.49XA Infection following a procedure, other surgical site, initial encounter (principal) ==

== ENCOUNTER → 2022-06-23 | Outpatient (REF) | payer OTHER | LOC: M SFHCPLAZ 12:59 | PROVIDERS: ATTEND Family Medicine | DX: F11.90 Opioid use, unspecified, uncomplicated (principal) ==

== ENCOUNTER → 2022-08-08 | Outpatient (CLI) | payer MEDICARE ==
[~2022-08-08] MED LIST changes: -DOXY-350 PO; +DOXY-444 PO
== END ==
LOC: M WHC 10:21
PROVIDERS: ATTEND Physician Assistant
DX: I65.23 Occlusion and stenosis of bilateral carotid arteries (principal)

== ENCOUNTER → 2022-08-16 | Outpatient (CLI) | payer MEDICARE | LOC: M RAD 09:08 | PROVIDERS: ATTEND Physician Assistant | DX: F17.210 Nicotine dependence, cigarettes, uncomplicated (principal) ==

== ENCOUNTER → 2022-09-29 | Outpatient (REF) | payer MEDICARE ==
[2022-09-29 17:54] LABS: BASO # 0.1 10^3/uL (0.0-0.2); BASO % 0.9 % (0.0-1.0); EOS # 0.8 10^3/uL (0.0-0.5); EOS % 6.4 % (0.0-3.0); HEMATOCRIT 40.1 % (36.0-47.0); HEMOGLOBIN 12.9 g/dl (12.0-15.5); LYMPH # 3.4 10^3/uL (1.5-5.0); LYMPH % 26.9 % (24.0-44.0); MEAN CORPUSCULAR HEMOGLOBIN 32.1 pg (27.0-33.0); MEAN CORPUSCULAR HGB CONC 32.2 g/dl (32.0-36.5); MEAN CORPUSCULAR VOLUME 99.8 fl (80.0-96.0); MONO % 7.9 % (2.0-8.0); NEUTROPHILS # 7.4 10^3/uL (1.5-8.5); NEUTROPHILS % 57.6 % (36.0-66.0); PLATELET COUNT, AUTOMATED 495 10^3/uL (150-450); RED BLOOD COUNT 4.02 10^6/uL (4.00-5.40); WHITE BLOOD COUNT 12.8 10^3/uL (4.0-10.0)
[2022-09-29 18:01] LABS: ALBUMIN 3.9 G/DL (3.2-5.2); ALKALINE PHOSPHATASE 83 U/L (46-116); ALT/SGPT 19 U/L (7.0-40); AST/SGOT 22 U/L (<34); BILIRUBIN,TOTAL 0.2 MG/DL (0.3-1.2); BLOOD UREA NITROGEN 18 MG/DL (9-23); CALCIUM LEVEL 10.4 MG/DL (8.3-10.6); CARBON DIOXIDE LEVEL 25 MMOL/L (20-31); CHLORIDE LEVEL 103 MMOL/L (98-107); CHOLESTEROL LEVEL 182 MG/DL (<200); CHOLESTEROL RISK RATIO 2.44 (<5); CREATININE FOR GFR 0.88 MG/DL (0.55-1.30); FREE T4 1.06 NG/DL (0.89-1.76); GLOMERULAR FILTRATION RATE > 60.0 (>39); GLUCOSE, FASTING 76 MG/DL (74-106); HDL CHOLESTEROL 74.4 MG/DL (>40); LDL CHOLESTEROL 88.6 MG/DL (<100); NON-HDL-C 108 MG/DL; POTASSIUM SERUM 5.1 MMOL/L (3.5-5.1); SODIUM LEVEL 138 MMOL/L (136-145); TOTAL PROTEIN 7.1 G/DL (5.7-8.2); TRIGLYCERIDES LEVEL 95 MG/DL (<150); VITAMIN B12 LEVEL 301 PG/ML (211-911)
[2022-09-29 18:02] LABS: THYROID STIMULATING HORMONE 0.337 uIU/ML (0.55-4.78)
[2022-09-29 18:03] LABS: TOTAL 25(OH) VITAMIN D 112.5 NG/ML (20.0-100.0)
[2022-09-29 18:05] LABS: FOLATE 10.6 NG/ML (>5.4)
== END ==
LOC: M SFHCADAM 14:17
PROVIDERS: ATTEND Physician Assistant
DX: I10 Essential (primary) hypertension (principal); Z12.11 Encounter for screening for malignant neoplasm of colon; E78.2 Mixed hyperlipidemia; J44.9 Chronic obstructive pulmonary disease, unspecified; M81.0 Age-related osteoporosis without current pathological fracture; M54.42 Lumbago with sciatica, left side

== ENCOUNTER → 2023-04-06 | Outpatient (REF) | payer MEDICARE | LOC: M SFHCADAM 13:30 | PROVIDERS: ATTEND Physician Assistant | DX: I10 Essential (primary) hypertension (principal); E78.2 Mixed hyperlipidemia; I65.23 Occlusion and stenosis of bilateral carotid arteries; J44.9 Chronic obstructive pulmonary disease, unspecified; M51.06 Intervertebral disc disorders with myelopathy, lumbar region ==

== ENCOUNTER → 2023-10-10 | Outpatient (REF) | payer MEDICARE ==
[~2023-10-10] MED LIST changes: -EFFE150C2 PO; +EFFE150C3 PO
== END ==
LOC: M SFHCADAM 12:54
PROVIDERS: ATTEND Physician Assistant
DX: E78.2 Mixed hyperlipidemia (principal); I65.23 Occlusion and stenosis of bilateral carotid arteries; J44.9 Chronic obstructive pulmonary disease, unspecified; M51.06 Intervertebral disc disorders with myelopathy, lumbar region; I10 Essential (primary) hypertension; L40.50 Arthropathic psoriasis, unspecified

== ENCOUNTER → 2023-11-27 | Outpatient (REF) | payer MEDICARE | LOC: M SFHCADAM 10:02 | PROVIDERS: ATTEND Physician Assistant | DX: L40.50 Arthropathic psoriasis, unspecified (principal) ==

== ENCOUNTER → 2023-12-19 | Outpatient (CLI) | payer MEDICARE | LOC: M RAD 13:35 | PROVIDERS: ATTEND Physician Assistant | DX: R91.8 Other nonspecific abnormal finding of lung field (principal) ==

== ENCOUNTER → 2024-01-11 | Outpatient (REF) | payer MEDICARE | LOC: M SFHCADAM 12:09 | PROVIDERS: ATTEND Family Medicine | DX: Z79.899 Other long term (current) drug therapy (principal) ==

== ENCOUNTER → 2025-01-23 | Outpatient (REF) | payer OTHER ==
[~2025-01-23] MED LIST changes: +DOXY-440 PO; -DOXY-444 PO
[2025-01-23 14:24] LABS: HEMATOCRIT 34.9 % (36.0-47.0); HEMOGLOBIN 11.3 g/dl (12.0-15.5); MEAN CORPUSCULAR HEMOGLOBIN 32.6 pg (27.0-33.0); MEAN CORPUSCULAR HGB CONC 32.4 g/dl (32.0-36.5); MEAN CORPUSCULAR VOLUME 100.6 fl (80.0-96.0); PLATELET COUNT, AUTOMATED 486 10^3/uL (150-450); RED BLOOD COUNT 3.47 10^6/uL (4.00-5.40); WHITE BLOOD COUNT 10.7 10^3/uL (4.0-10.0)
[2025-01-23 14:53] LABS: ALBUMIN 3.6 G/DL (3.2-5.2); BILIRUBIN,TOTAL 0.2 MG/DL (0.3-1.2); CALCIUM LEVEL 9.7 MG/DL (8.3-10.6); CREATININE FOR GFR 0.95 MG/DL (0.55-1.30); GLOMERULAR FILTRATION RATE 63.7 (>39); POTASSIUM SERUM 5.1 MMOL/L (3.5-5.1); TOTAL PROTEIN 7.1 G/DL (5.7-8.2)
== END ==
LOC: M SFHCADAM 10:29
PROVIDERS: ATTEND Physician Assistant
DX: R47.01 Aphasia (principal); R53.83 Other fatigue; S06.5XAA Traumatic subdural hemorrhage with loss of consciousness status unknown, initial encounter; Y92.9 Unspecified place or not applicable; Y93.9 Activity, unspecified; Y99.9 Unspecified external cause status; X58.XXXA Exposure to other specified factors, initial encounter

== ENCOUNTER → 2025-02-24 | Outpatient (REF) | payer OTHER ==
[2025-02-24 17:14] LABS: IRON (FE) 10 UG/DL (50-170); PERCENT SATURATION 3.1 % (13.2-45.0); TOTAL IRON BINDING CAPACITY 322 UG/DL (250-425)
[2025-02-24 17:18] LABS: FERRITIN 10.3 NG/ML (7.3-270.7); FOLATE > 24.0 NG/ML (>5.4); THYROID STIMULATING HORMONE 0.775 uIU/ML (0.55-4.78)
[2025-02-24 17:19] LABS: FREE T4 1.43 NG/DL (0.89-1.76); VITAMIN B12 LEVEL 509 PG/ML (211-911)
== END ==
LOC: M SFHCADAM 13:10
PROVIDERS: ATTEND Physician Assistant
DX: D64.9 Anemia, unspecified (principal)

== ENCOUNTER → 2025-06-05 | Outpatient (REF) | payer OTHER | LOC: M SFHCADAM 10:06 | PROVIDERS: ATTEND Physician Assistant | DX: Z53.9 Procedure and treatment not carried out, unspecified reason (principal) ==

== ENCOUNTER → 2025-06-10 | Outpatient (REF) | payer OTHER ==
[2025-06-10 17:44] LABS: BASO # 0.1 10^3/uL (0.0-0.2); BASO % 0.8 % (0.0-1.0); EOS # 0.7 10^3/uL (0.0-0.5); EOS % 4.6 % (0.0-3.0); LYMPH # 2.2 10^3/uL (1.5-5.0); LYMPH % 15.4 % (24.0-44.0); MONO # 1.1 10^3/uL (0.0-0.8); MONO % 7.8 % (2.0-8.0); NEUTROPHILS # 10.1 10^3/uL (1.5-8.5); NEUTROPHILS % 71.0 % (36.0-66.0); PLATELET COUNT, AUTOMATED 522 10^3/uL (150-450)
[2025-06-10 17:47] LABS: ALT/SGPT 16.0 U/L (7.0-40); AST/SGOT 22.0 U/L (<34); CALCIUM LEVEL 9.6 MG/DL (8.3-10.6); CARBON DIOXIDE LEVEL 29.0 MMOL/L (20-31); CHLORIDE LEVEL 103.0 MMOL/L (98-107); CREATININE FOR GFR 1.2 MG/DL (0.55-1.30); GLOMERULAR FILTRATION RATE 48.1 (>39); IRON (FE) 14.0 UG/DL (50-170); PERCENT SATURATION 3.8 % (13.2-45.0); POTASSIUM SERUM 4.7 MMOL/L (3.5-5.1); SODIUM LEVEL 141.0 MMOL/L (136-145)
== END ==
LOC: M LABDRWAD 17:30
PROVIDERS: ATTEND Physician Assistant
DX: D53.9 Nutritional anemia, unspecified (principal); R00.0 Tachycardia, unspecified; R60.0 Localized edema

== ENCOUNTER → 2025-06-11 | Outpatient (CLI) | payer OTHER | LOC: M LAB 12:47 | PROVIDERS: ATTEND Physician Assistant | DX: D50.9 Iron deficiency anemia, unspecified (principal) ==

== ENCOUNTER 2025-06-12 09:12 | Outpatient (CLI) | payer OTHER ==
[2025-06-12] VITALS (7 sets, daily range): BP systolic 118–158; BP diastolic 58–87; TEMP 97.4–98.2; O2SAT 98–100
[~2025-06-12] VITALS: Ht 157.5 cm; Wt 46.4 kg
== END 2025-06-12 13:30 | disposition home or self-care (01) ==
LOC: M INFU 09:12
PROVIDERS: ATTEND Physician Assistant
DX: D50.9 Iron deficiency anemia, unspecified (principal); Z88.0 Allergy status to penicillin
CPT/HCPCS: 36430; P9016